=== PATIENT | male | born 1950 | race Hispanic/Latino ===

== ENCOUNTER 2021-09-05 19:14 | Inpatient (IN) | payer MEDICARE ==
[~2021-09-05] VITALS: Ht 172.7 cm; Wt 63.4 kg
[~2021-09-05 19:14] MED LIST: DONE10TA43 PO; LOSA100T58 PO
[2021-09-05] MEDS ORDERED: ZIPRASIDONE MESYLATE 20 MG/VIAL IM ONE (21:06)
[2021-09-05 21:28] LABS: BASOPHILS % (AUTO) 0.7 % (0.0-5.0); EOSINOPHILS % (AUTO) 2.2 % (0.0-8.0); HEMATOCRIT 41.3 % (42-54); LYMPHOCYTES % (AUTO) 27.1 % (21.0-51.0); MEAN CORPUSCULAR HEMOGLOBIN 31.9 pg (27.0-33.0); MEAN CORPUSCULAR HGB CONC 32.7 g/dL (32.0-36.0); MEAN CORPUSCULAR VOLUME 97.6 fL (79-99); MONOCYTES % (AUTO) 5.3 % (3.0-13.0); NEUTROPHILS % (AUTO) 64.4 % (40.0-77.0); PLATELET COUNT (AUTO) 225 K/uL (130-400); RED BLOOD CELL COUNT(AUTO) 4.23 MIL/uL (4.50-6.20); WHITE BLOOD COUNT (AUTO) 6.9 K/uL (4.8-10.8)
[2021-09-05] MEDS ORDERED: ZIPRASIDONE MESYLATE 20 MG/VIAL IM SCH (21:30)
[2021-09-05 21:39] LABS: CREATININE 0.8 mg/dL (0.5-1.5)
[2021-09-05 21:41] LABS: APPEARANCE,URINE Clear (CLEAR); BILIRUBIN,URINE Negative (NEGATIVE); COLOR,URINE Yellow (YELLOW); GLUCOSE, URINE (UA) Negative (NEGATIVE); KETONES,URINE Trace mg/dL (NEGATIVE); LEUKOCYTE ESTERASE ,URINE Negative (NEGATIVE); NITRATE,URINE Negative (NEGATIVE); OCCULT BLOOD,URINE Small (NEGATIVE); PROTEIN,URINE Negative (NEGATIVE); UROBILINOGEN,URINE 0.2 mg/dL (0.2-1.0)
[2021-09-05 21:44] LABS: ALBUMIN 3.6 g/dL (3.5-5.0); BILIRUBIN,TOTAL 0.2 mg/dL (0.2-1.0); TOTAL PROTEIN, SERUM 7.3 g/dL (6.0-8.3)
[2021-09-05 21:53] LABS: WBC,URINE 0-1 /HPF (0-1)
[2021-09-05 21:54] LABS: BACTERIA,URINE Rare /HPF (None Seen); MUCUS,URINE Rare LPF (None Seen); SQUAMOUS EPITHELIAL CELL,UR Rare /HPF (0-2)
[2021-09-05] MEDS ORDERED: LORAZEPAM 2 MG/ML 1 ML VIAL ONE (22:41)
[2021-09-05] MEDS ORDERED: LORAZEPAM 2 MG/ML 1 ML VIAL IVP PRN (23:30)
[2021-09-06 03:40] VITALS: BP 141/91
[2021-09-06] MEDS ORDERED: LORAZEPAM 2 MG/ML 1 ML VIAL IVP PRN (04:30)
[2021-09-06 04:42] LABS: HEMATOCRIT 36.6 % (42-54); MEAN CORPUSCULAR HEMOGLOBIN 32.2 pg (27.0-33.0); MEAN CORPUSCULAR HGB CONC 32.8 g/dL (32.0-36.0); MEAN CORPUSCULAR VOLUME 98.1 fL (79-99); RED BLOOD CELL COUNT(AUTO) 3.73 MIL/uL (4.50-6.20); RED CELL DISTRIBUTION WIDTH 12.9 % (11.0-15.5); WHITE BLOOD COUNT (AUTO) 6.1 K/uL (4.8-10.8)
[2021-09-06 04:58] LABS: CREATININE 0.7 mg/dL (0.5-1.5); MAGNESIUM 2.3 mg/dL (1.80-2.40); POTASSIUM 3.7 mmol/L (3.5-5.1)
[2021-09-06 11:00] VITALS: BP 135/85
[2021-09-06] MEDS ORDERED: OLANZAPINE ODT 5 MG TAB SL SCH (14:00)
[2021-09-06] MEDS ORDERED: MIRT-22 PO (15:51)
[2021-09-06] MEDS ORDERED: TRAZ-185 PO (15:51)
[2021-09-06] MEDS ORDERED: MEMA5TAB42 PO (15:51)
[2021-09-06 16:00] VITALS: BP 134/79
[2021-09-06 20:45] VITALS: BP 147/94
[2021-09-06] MEDS: OLANZAPINE ODT 5 MG TAB SL SCH (21:10)
[2021-09-06] MEDS: TRAZODONE HCL 50 MG TAB PO SCH (21:10)
[2021-09-06] MEDS: MIRTAZAPINE 15 MG TABLET PO SCH (21:10)
[2021-09-06] MEDS: MEMANTINE HCL 5 MG TABLET PO SCH (21:10)
[2021-09-06] MEDS: DONEPEZIL HCL 5 MG TAB PO SCH (21:10)
[2021-09-06 23:30] VITALS: BP 142/82
[2021-09-07 05:15] VITALS: BP 148/87
[2021-09-07 08:00] VITALS: BP 134/82
[2021-09-07] MEDS: LOSARTAN 100 MG TABLET PO SCH (08:46)
[2021-09-07] MEDS: OLANZAPINE ODT 5 MG TAB SL SCH ×2 (08:46→21:56)
[2021-09-07 12:00] VITALS: BP 128/78
[2021-09-07 16:00] VITALS: BP 139/69
[2021-09-07 20:04] VITALS: BP 149/95
[2021-09-07] MEDS: MEMANTINE HCL 5 MG TABLET PO SCH (21:57)
[2021-09-07] MEDS: DONEPEZIL HCL 5 MG TAB PO SCH (21:57)
[2021-09-07] MEDS: MIRTAZAPINE 15 MG TABLET PO SCH (21:57)
[2021-09-07] MEDS: TRAZODONE HCL 50 MG TAB PO SCH (21:57)
[2021-09-07 23:34] VITALS: BP 151/86
[2021-09-08 04:44] VITALS: BP 131/75
[2021-09-08 08:00] VITALS: BP 134/78
[2021-09-08] MEDS: OLANZAPINE ODT 5 MG TAB SL SCH ×2 (09:28→20:06)
[2021-09-08] MEDS: LOSARTAN 100 MG TABLET PO SCH (09:28)
[2021-09-08 12:00] VITALS: BP 124/75
[2021-09-08 16:00] VITALS: BP 129/84
[2021-09-08] MEDS: MIRTAZAPINE 15 MG TABLET PO SCH (20:06)
[2021-09-08] MEDS: DONEPEZIL HCL 5 MG TAB PO SCH (20:06)
[2021-09-08] MEDS: TRAZODONE HCL 50 MG TAB PO SCH (20:06)
[2021-09-08] MEDS: MEMANTINE HCL 5 MG TABLET PO SCH (20:07)
[2021-09-08 20:12] VITALS: BP 148/96
[2021-09-08 23:33] VITALS: BP 149/91
[2021-09-09 04:05] VITALS: BP 134/82
[2021-09-09 08:00] VITALS: BP 143/88
[2021-09-09] MEDS: LOSARTAN 100 MG TABLET PO SCH (08:49)
[2021-09-09] MEDS: OLANZAPINE ODT 5 MG TAB SL SCH ×2 (08:49→21:18)
[2021-09-09 11:56] VITALS: BP 128/78
[2021-09-09 16:00] VITALS: BP 124/86
[2021-09-09 20:05] VITALS: BP 113/81
[2021-09-09] MEDS: MEMANTINE HCL 5 MG TABLET PO SCH (21:18)
[2021-09-09] MEDS: TRAZODONE HCL 50 MG TAB PO SCH (21:18)
[2021-09-09] MEDS: MIRTAZAPINE 15 MG TABLET PO SCH (21:18)
[2021-09-09] MEDS: DONEPEZIL HCL 5 MG TAB PO SCH (21:18)
[2021-09-09 23:57] VITALS: BP 154/92
[2021-09-10 04:09] VITALS: BP 137/97
[2021-09-10 08:00] VITALS: BP 148/83
[2021-09-10] MEDS: LOSARTAN 100 MG TABLET PO SCH (09:32)
[2021-09-10] MEDS: OLANZAPINE ODT 5 MG TAB SL SCH ×2 (09:33→20:17)
[2021-09-10 12:00] VITALS: BP 126/78
[2021-09-10 16:00] VITALS: BP 131/91
[2021-09-10 20:02] VITALS: BP 122/66
[2021-09-10] MEDS: MIRTAZAPINE 15 MG TABLET PO SCH (20:16)
[2021-09-10] MEDS: TRAZODONE HCL 50 MG TAB PO SCH (20:16)
[2021-09-10] MEDS: MEMANTINE HCL 5 MG TABLET PO SCH (20:16)
[2021-09-10] MEDS: DONEPEZIL HCL 5 MG TAB PO SCH (20:17)
[2021-09-10 23:26] VITALS: BP 128/76
[2021-09-11 04:17] VITALS: BP 120/68
[2021-09-11 08:00] VITALS: BP 136/87
[2021-09-11] MEDS: OLANZAPINE ODT 5 MG TAB SL SCH (08:30)
[2021-09-11] MEDS: LOSARTAN 100 MG TABLET PO SCH (08:30)
[2021-09-11 12:00] VITALS: BP 126/69
== END 2021-09-11 15:00 | DRG 948 ==
LOC: EDH 19:14 → EDHIP 21:19 → 3CH 09-06 03:10
PROVIDERS: ADMIT Family Medicine; ATTEND Family Medicine
DX: R41.82 Altered mental status, unspecified (principal); R45.1 Restlessness and agitation; F22 Delusional disorders; F60.0 Paranoid personality disorder; Z20.822 Contact with and (suspected) exposure to COVID-19; I10 Essential (primary) hypertension; F31.9 Bipolar disorder, unspecified
CPT/HCPCS: 36415; 80048; 80053; 81001; 83735; 85025; 85027; 87635; G0378; J2060; J3486